=== PATIENT | female | born 1985 | race Caucasian/White ===

== ENCOUNTER 2017-04-11 07:11 | Emergency (ER) | payer BC ==
[~2017-04-11] VITALS: Ht 177.8 cm; Wt 95.2 kg
[~2017-04-11 07:11] MED LIST: BENADRYL25 MG PO; CETIRIZINE HCL10 MG PO; CLONAZEPAM2 MG PO; EXCEDRIN MIGRA1 EAC2 PO; PAMPRIN MULTI-1 EACH PO; TRAMADOL HCL50 MG PO; TYLENOL EXTRA500 MG PO; WELLBUTRIN XL300 MG PO
== END 2017-04-11 08:16 | disposition home or self-care (01) ==
LOC: ED 07:11
DX: J02.0 Streptococcal pharyngitis (principal); F31.9 Bipolar disorder, unspecified; F17.200 Nicotine dependence, unspecified, uncomplicated; Z88.8 Allergy status to other drugs, medicaments and biological substances
CPT/HCPCS: 87880; 96372; 99283; J0561

== ENCOUNTER 2020-10-24 21:57 | Emergency (ER) | payer OTHER ==
[~2020-10-24] VITALS: Ht 167.6 cm; Wt 125.6 kg
[~2020-10-24 21:57] MED LIST changes: +BACTRIM DS TAB1 EACH PO
--- OUTSIDE RECORDS SUMMARY | 2020-10-24 22:00 | XMS ---
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 David has no Care Guidelines for this patient. [facility] VISIT COUNT (12 MO.) 1 [facility] TOTAL 1 NOTE: Visits indicate total known visits. ED/UCC VISIT TRACKING (12 MO.) 10/24/2020 21:59 [facility] [place] TYPE: Emergency COMPLAINT: - BLEEDING (14 WEEKS PG) INPATIENT VISIT TRACKING (12 MO.) No inpatient visits to display in this time frame [email or web address]
[2020-10-24] MEDS ORDERED: ASPIRIN81 MG PO (22:25)
== END 2020-10-24 22:48 | disposition home or self-care (01) ==
LOC: ED 21:57
DX: O20.0 Threatened abortion (principal); Z3A.14 14 weeks gestation of pregnancy; Z88.8 Allergy status to other drugs, medicaments and biological substances; Z79.82 Long term (current) use of aspirin
CPT/HCPCS: 99283

== ENCOUNTER 2021-04-11 16:33 | Inpatient (IN) | payer OTHER ==
[~2021-04-11] VITALS: Ht 167.6 cm; Wt 139.7 kg
[~2021-04-11 16:33] MED LIST changes: +ASPIRIN81 MG PO
--- NOTE | 2021-04-11 18:06 | NUR ---
RAPID COVID TEST DONE PER DR ORDER. COVID TEST COLLECTED FROM BOTH NARES W/O ISSUE. PT TOLERATED TX WELL.
[2021-04-11] MEDS ORDERED: VITAFOL-OB+DHA1 EACH PO (21:41)
--- NOTE | 2021-04-12 05:27 | PR ---
[facility] [address] [place], [place] [address] Signed Progress Notes IP Datetime Report Generated by CPN: 04/12/2021 05:27 PROGRESS NOTES: [id number] Impression: Reassuring Heart Rate; Rupture of Membranes Procedures: Artificial ROM; Intrauterine Pressure Catheter; Scalp Electrode Plan: Continue Present Management Other Informed Consents: Amniotomy and FSE+IUPC placement VITAL SIGNS: [id number] Vital Signs: Reviewed; Within Normal Limits EXAM: [id number] Dilatation: 1.0 Effacement: 50 Station: -2 Contractions: irregular MEMBRANES: [id number] Membranes Status: Ruptured Comments: 35 yo @ 38 4/7 weeks gestation MIOL for severe polyhydramnios per MFM recommendation, AMA, morbid obesity s/p cytotec x 1 comfortable with epidural AROM performed as noted yielding copious amount clear fluid FSE/ IUPC placed without difficulty head well-applied to cervix, contractions adequate at this time. s/p Anny for GBS prophylaxis, continue q4h FETUS A: [id number] FHR Baseline: 135 Variability: Moderate 6-25bpm Accelerations: 15X15 Decelerations: None FHR Category: Category I Presentation: Vertex Comments on Fetus A: No evidence of acidosis FETUS B: [id number] Signing Physician: Kristi Mckenzie DO Copies: *Electronically Signed* 04/12/21 0527 KRISTI MCKENZIE DO PATIENT NAME: TJ ZUNIGA PROGRESS NOTE DATE OF : 85 PHYSICIAN: KRISTI MCKENZIE DO RPT #: [id number] REPORT IS CONFIDENTIAL AND NOT TO BE RELEASED WITHOUT AUTHORIZATION [address], [place] [address] Signed ~ *Electronically Signed* 04/12/21 0527 KRISTI MCKENZIE DO PATIENT NAME: TJ ZUNIGA PROGRESS NOTE DATE OF : 85 PHYSICIAN: KRISTI MCKENZIE DO RPT #: [id number] REPORT IS CONFIDENTIAL AND NOT TO BE RELEASED WITHOUT AUTHORIZATION
--- NOTE | 2021-04-12 06:47 | PR ---
[facility] [address] [place], [place] [address] Signed Progress Notes IP Datetime Report Generated by CPDasha: 04/12/2021 06:47 PROGRESS NOTES: [id number] Impression: Normal Progression of Labor Procedures: Sterile Vag Exam Plan: Continue Present Management Other Informed Consents: Amniotomy and FSE+IUPC placement VITAL SIGNS: Z7457934 Vital Signs: Reviewed; Within Normal Limits EXAM: [id number] Dilatation: 3.0 Effacement: 60 Station: -2 Contractions: irregular MEMBRANES: [id number] Membranes Status: Ruptured Comments: 35 yo @ 38 4/7 weeks gestation MIOL for severe polyhydramnios, AMA, morbid obesity s/p cytotec x 1 AROM performed with FSE, copious amount clear fluid FSE/IUPC plcaed without difficulty. Discussed with pt intermittent decelerations. Currently 3cm. Reviewed if these decelerations become more frequent despite repositioning and fluids if needed, may be indicated. Pt verbalizes understanding and agreement with plan. FETUS A: [id number] FHR Baseline: 135 Variability: Moderate 6-25bpm Accelerations: 15X15 Decelerations: None FHR Category: Category I Presentation: Vertex Comments on Fetus A: No evidence of acidosis FETUS B: [id number] Signing Physician: Agustin Mckenzie DO Copies: *Electronically Signed* 04/12/21 0647 AGUSTIN MCKENZIE DO PATIENT NAME: TJ ZUNIGA PROGRESS NOTE DATE OF : 85 PHYSICIAN: AGUSTIN MCKENZIE DO RPT #: [id number] REPORT IS CONFIDENTIAL AND NOT TO BE RELEASED WITHOUT AUTHORIZATION [address], [place] [address] Signed ~ *Electronically Signed* 04/12/21 0647 AGUSTIN MCKENZIE DO PATIENT NAME: TJ ZUNIGA PROGRESS NOTE DATE OF : 85 PHYSICIAN: AGUSTIN MCKENZIE DO RPT #: [id number] REPORT IS CONFIDENTIAL AND NOT TO BE RELEASED WITHOUT AUTHORIZATION
--- NOTE | 2021-04-12 07:54 | PR ---
[facility] [address] [facility] [place], [place] [address] Signed Progress Notes IP Datetime Report Generated by CPN: 04/12/2021 07:54 PROGRESS NOTES: [id number] Impression: Normal Progression of Labor; Reassuring Heart Rate Procedures: Sterile Vag Exam Plan: Continue Present Management Other Informed Consents: Reviewed anticipated course of labor VITAL SIGNS: [id number] Vital Signs: Reviewed; Within Normal Limits EXAM: [id number] Dilatation: 1.0 Effacement: 50 Station: -1 Contractions: irregular MEMBRANES: E2533102 Membranes Status: Ruptured ROM Note: ROM per Dr Mckenzie using SE Comments: Pt seen and evaluated. Doing well. Comfortable w/ epidural. Reviewed anticipated course of labor/delivery. All questions answered. FETUS A: [id number] FHR Baseline: 135 Variability: Moderate 6-25bpm Accelerations: 15X15 Decelerations: None FHR Category: Category I Presentation: Vertex Comments on Fetus A: No evidence of acidosis FETUS B: [id number] Signing Physician: Anay Escudero DO Copies: ~ *Electronically Signed* 04/12/21 0754 ANAY ESCUDERO DO PATIENT NAME: TJ ZUNIGA PROGRESS NOTE DATE OF : 85 PHYSICIAN: ANAY ESCUDERO DO RPT #: [id number] REPORT IS CONFIDENTIAL AND NOT TO BE RELEASED WITHOUT AUTHORIZATION
--- NOTE | 2021-04-12 14:06 | PR ---
[facility] [address] [place], [place] [address] Signed Progress Notes IP Datetime Report Generated by CPN: 04/12/2021 14:06 PROGRESS NOTES: [id number] Impression: Normal Progression of Labor Procedures: Sterile Vag Exam Plan: Augmentation Other Informed Consents: Reviewed anticipated course of labor VITAL SIGNS: U1408901 Vital Signs: Reviewed; Within Normal Limits EXAM: Y7753248 Dilatation: 5.0 Effacement: 80 Station: 0 Contractions: irregular MEMBRANES: [id number] Membranes Status: Ruptured ROM Note: ROM per Dr Mckenzie using SE Comments: 35 yo @ 38 4/7 weeks gestation MIOL for severe polyhydramnios, AMA, morbid obesity s/p cytotec x1, AROM, pitocin. Pitocin previously discontinued for recurrent late decelerations, not making change without pitocin. Resume pitocin at lowest dose FETUS A: [id number] FHR Baseline: 135 Variability: Moderate 6-25bpm Accelerations: 15X15 Decelerations: None FHR Category: Category I Presentation: Vertex Comments on Fetus A: No evidence of acidosis FETUS B: [id number] Signing Physician: Agustin Mckenzie DO *Electronically Signed* 04/12/21 1406 AGUSTIN MCKENZIE DO PATIENT NAME: TJ ZUNIGA PROGRESS NOTE DATE OF : 85 PHYSICIAN: AGUSTIN MCKENZIE DO RPT #: [id number] REPORT IS CONFIDENTIAL AND NOT TO BE RELEASED WITHOUT AUTHORIZATION [address] [place], [place] [address] Signed Copies: ~ *Electronically Signed* 04/12/21 1406 AGUSTIN MCKENZIE DO PATIENT NAME: TJ ZUNIGA PROGRESS NOTE DATE OF : 85 PHYSICIAN: AGUSTIN MCKENZIE DO RPT #: [id number] REPORT IS CONFIDENTIAL AND NOT TO BE RELEASED WITHOUT AUTHORIZATION
--- NOTE | 2021-04-13 06:55 | PR ---
[facility] [address] [facility] [place], [place] [address] Signed PP Progress Notes Datetime Report Generated by CPDasha: 04/13/2021 06:55 SUBJECTIVE: [id number] Pain: Within Normal Limits Nausea/Vomiting: Present Flatus: Yes Bowel Movement: No Vital Signs: O5168749 Vital Signs: Reviewed; Within Normal Limits Notable Details: HTN while pushing and holding baby, resolved Cardiovascular: Normal Respiratory: Normal Abdomen/Uterus: Normal Lochia: Normal Extremities: Normal Progress: Normal Exam Comments: NAd, lying in bed RRR No dyspnea Abd SNTND FFBU Negative Rachelle's BL, 2+ pitting edema BLLE IMPRESSION/PLAN/PROCEDURES: [id number] Impression: Normal Progression; Difficulties Plan: Continue Present Management; Consult Progress Notes: PPD#1 s/p -ambulating, voiding, + flatus -mild nausea this am, tolerating crackers and clears -difficulty with latch, encouraged consult -anticipate DC to home tomorrow Signing Physician: Agustin Mckenzie DO Copies: ~ *Electronically Signed* 04/13/21 0655 AGUSTIN MCKENZIE DO PATIENT NAME: TJ ZUNIGA PROGRESS NOTE DATE OF : 85 PHYSICIAN: AGUSTIN MCKENZIE DO RPT #: [id number] REPORT IS CONFIDENTIAL AND NOT TO BE RELEASED WITHOUT AUTHORIZATION
--- NOTE | 2021-04-14 10:06 | PR ---
[facility] [address] [facility] [place], [place] [address] Signed PP Progress Notes Datetime Report Generated by CPN: 04/14/2021 10:06 SUBJECTIVE: [id number] Pain: Within Normal Limits Nausea/Vomiting: Denies Flatus: Yes Bowel Movement: No Vital Signs: R2365954 Vital Signs: Reviewed Notable Details: occasional HTN when holding baby while cuff inflates, otherwise registering as normotensive Cardiovascular: Normal Respiratory: Normal Abdomen/Uterus: Normal Lochia: Normal Vulva/Perineum: Normal Extremities: Normal Progress: Abnormal Exam Comments: NAD, sitting in bed with baby RRR No dyspnea, no retractions Abd SNTND FFBU Ext: neg Rachelle's BL IMPRESSION/PLAN/PROCEDURES: [id number] Impression: Normal Progression Plan: Continue Present Management Progress Notes: PPD#2 s/p Progressing well Lochia light difficulties due to tongue tie, anticipate outpatient support Pain well controlled with motrin Anticipate DC to home today, outpatient follow-up at 2 weeks by phone and 6 weeks in person Signing Physician: Agustin Mckenzie DO *Electronically Signed* 04/14/21 1006 AGUSTIN MCKENZIE DO PATIENT NAME: TJ ZUNIGA PROGRESS NOTE DATE OF : 85 PHYSICIAN: AGUSTIN MCKENZIE DO RPT #: [id number] REPORT IS CONFIDENTIAL AND NOT TO BE RELEASED WITHOUT AUTHORIZATION [address], [place] [address] Signed Copies: ~ *Electronically Signed* 04/14/21 1006 AGUSTIN MCKENZIE DO PATIENT NAME: TJ ZUNIGA PROGRESS NOTE DATE OF : 85 PHYSICIAN: AGUSTIN MCKENZIE DO RPT #: [id number] REPORT IS CONFIDENTIAL AND NOT TO BE RELEASED WITHOUT AUTHORIZATION
== END 2021-04-14 12:00 | disposition home or self-care (01) | DRG 806 ==
LOC: FBC 16:33
PROVIDERS: ADMIT Obstetrics & Gynecology; ATTEND Obstetrics & Gynecology
PROC: 10E0XZZ Delivery of Products of Conception, External Approach (ICD-10-PCS; principal; 2021-04-13)
PROC: 10H07YZ Insertion of Other Device into Products of Conception, Via Natural or Artificial Opening (ICD-10-PCS; 2021-04-13)
PROC: 10907ZC Drainage of Amniotic Fluid, Therapeutic from Products of Conception, Via Natural or Artificial Opening (ICD-10-PCS; 2021-04-13)
PROC: 3E033VJ Introduction of Other Hormone into Peripheral Vein, Percutaneous Approach (ICD-10-PCS; 2021-04-13)
PROC: 0KQM0ZZ Repair Perineum Muscle, Open Approach (ICD-10-PCS; 2021-04-13)
PROC: 10907ZC Drainage of Amniotic Fluid, Therapeutic from Products of Conception, Via Natural or Artificial Opening (ICD-10-PCS; 2021-04-13)
PROC: 3E033VJ Introduction of Other Hormone into Peripheral Vein, Percutaneous Approach (ICD-10-PCS; 2021-04-13)
PROC: 0UQMXZZ Repair Vulva, External Approach (ICD-10-PCS; 2021-04-13)
DX: O40.3XX0 Polyhydramnios, third trimester, not applicable or unspecified (principal); O99.324 Drug use complicating childbirth; Z37.0 Single live birth; O99.214 Obesity complicating childbirth; Z3A.38 38 weeks gestation of pregnancy; E66.01 Morbid (severe) obesity due to excess calories; O76 Abnormality in fetal heart rate and rhythm complicating labor and delivery; O70.1 Second degree perineal laceration during delivery; O71.82 Other specified trauma to perineum and vulva; O99.334 Smoking (tobacco) complicating childbirth; F17.210 Nicotine dependence, cigarettes, uncomplicated; O99.824 Streptococcus B carrier state complicating childbirth; F12.90 Cannabis use, unspecified, uncomplicated
CPT/HCPCS: 01960; 85027; C9803; J1650; J2405; J2540; J2590; J2795; J3010; J7121; U0003

== ENCOUNTER 2023-07-17 11:35 | Inpatient (IN) | payer OTHER ==
[~2023-07-17] VITALS: Ht 168.9 cm; Wt 133.8 kg
[~2023-07-17 11:35] MED LIST changes: +VITAFOL-OB+DHA1 EACH PO
[2023-07-18 00:54] LABS: AMPHETAMINES, URINE NEGATIVE (NEGATIVE); BARBITURATES, URINE NEGATIVE (NEGATIVE); BENZODIAZEPINE, URINE NEGATIVE (NEGATIVE); BUPRENORPHINE, URINE NEGATIVE (NEGATIVE); CANNABINOID, URINE POSITIVE (NEGATIVE); COCAINE, URINE NEGATIVE (NEGATIVE); ECSTASY, URINE NEGATIVE (NEGATIVE); FENTANYL, URINE NEGATIVE (NEGATIVE); METHADONE, URINE NEGATIVE (NEGATIVE); OPIATES, URINE NEGATIVE (NEGATIVE); OXYCODONE, URINE NEGATIVE (NEGATIVE); PHENCYCLIDINE, URINE NEGATIVE (NEGATIVE)
[2023-07-18 01:08] LABS: HEMATOCRIT 42.5 % (35.0-50.0); HEMOGLOBIN 14.5 g/dL (12.0-18.0); MCH 30.7 (27-36); MCV 90.1 fl (81-99); RBC 4.72 M/ul (4.3-5.7); RDW 14.5 (10.5-15.0)
[2023-07-18 02:10] LABS: ABO A; ANTIBODY SCREEN NEGATIVE; RH POSITIVE
[2023-07-18 03:13] VITALS: BP 139/78
--- NOTE | 2023-07-18 19:12 | PR ---
[facility] [address] [facility] [place], [place] [address] Signed Progress Notes IP Datetime Report Generated by CPN: 07/18/2023 19:11 PROGRESS NOTES: [id number] Impression: Normal Progression of Labor; Reassuring Heart Rate Procedures: Sterile Vag Exam Plan: Augmentation VITAL SIGNS: X8631277 Vital Signs: Reviewed; Within Normal Limits EXAM: W8673417 Dilatation: 4.0 Effacement: 50 Station: -3 Contractions: irregular MEMBRANES: C7543370 Comments: Cx more dilated than earlier but presenting part not palpable. VTX confirmed by U/S. Will begin pit augment given the advanced dilation and high station. FETUS A: H7759577 FHR Baseline: 120 Variability: Moderate 6-25bpm Accelerations: 15X15 Decelerations: None FHR Category: Category I Presentation: Vertex FETUS B: [id number] Signing Physician: Natividad Martinez MD Copies: ~ *Electronically Signed* 07/18/231910 NATIVIDAD MARTINEZ MD PATIENT NAME: TJ CAO MANUEL PROGRESS NOTE DATE OF : 85 PHYSICIAN: NATIVIDAD MARTINEZ MD RPT #: [id number] REPORT IS CONFIDENTIAL AND NOT TO BE RELEASED WITHOUT AUTHORIZATION
--- NOTE | 2023-07-18 19:13 | PR ---
[facility] [address] [place], [place] [address] Signed Progress Notes IP Datetime Report Generated by CPN: 07/18/2023 19:13 PROGRESS NOTES: [id number] Impression: Normal Progression of Labor; Reassuring Heart Rate Procedures: Sterile Vag Exam Plan: Augmentation VITAL SIGNS: J7247684 Vital Signs: Reviewed; Within Normal Limits EXAM: P4521917 Dilatation: 4.0 Effacement: 50 Station: -3 Contractions: irregular MEMBRANES: L2682985 Comments: Cx more dilated than earlier but presenting part not palpable. VTX confirmed by U/S. Will begin pit augment given the advanced dilation and high station. Discussed with patient and she is on board with plan. FETUS A: [id number] FHR Baseline: 120 Variability: Moderate 6-25bpm Accelerations: 15X15 Decelerations: None FHR Category: Category I Presentation: Vertex FETUS B: [id number] Signing Physician: Natividad Martinez MD Copies: ~ *Electronically Signed* 07/18/231912 NATIVIDAD MARTINEZ MD PATIENT NAME: TJ CAO MANUEL PROGRESS NOTE DATE OF : 85 PHYSICIAN: NATIVIDAD MARTINEZ MD RPT #: [id number] REPORT IS CONFIDENTIAL AND NOT TO BE RELEASED WITHOUT AUTHORIZATION
--- NOTE | 2023-07-18 20:27 | PR ---
[facility] [address] [place], [place] [address] Signed Progress Notes IP Datetime Report Generated by GABO: 07/18/2023 20:27 PROGRESS NOTES: [id number] Impression: Reassuring Heart Rate Procedures: Sterile Vag Exam Plan: Continue Present Management; Anesthesia Consult VITAL SIGNS: C5693198 Vital Signs: Reviewed; Within Normal Limits EXAM: O7494023 Dilatation: 4.0 Effacement: 80 Station: -3 Contractions: q 2 to 4 min MEMBRANES: G8033746 Comments: Getting more uncomfortable and requesting epidural but anesthesia unavailable for approx 1 hr. She feels she can wait. Baby has come down since her last exam. Will continue. FETUS A: [id number] FHR Baseline: 120 Variability: Moderate 6-25bpm Accelerations: 15X15 Decelerations: None FHR Category: Category I Presentation: Vertex FETUS B: [id number] Signing Physician: Natividad Martinez MD Copies: ~ *Electronically Signed* 07/18/232026 NATIVIDAD MARTINEZ MD PATIENT NAME: TJ CAO MANUEL PROGRESS NOTE DATE OF : 85 PHYSICIAN: NATIVIDAD MARTINEZ MD RPT #: [id number] REPORT IS CONFIDENTIAL AND NOT TO BE RELEASED WITHOUT AUTHORIZATION
--- NOTE | 2023-07-18 23:34 | PR ---
[facility] [address] [facility] [place] [address] Signed Progress Notes IP Datetime Report Generated by CPN: 07/18/2023 23:34 PROGRESS NOTES: [id number] Impression: Reassuring Heart Rate Procedures: Artificial ROM; Scalp Electrode; Sterile Vag Exam Plan: Continue Present Management VITAL SIGNS: H5609547 Vital Signs: Reviewed; Within Normal Limits EXAM: T1094639 Dilatation: 4.0 Effacement: 80 Station: -3 Contractions: q 2 to 3 min MEMBRANES: O6175915 Comments: Pt declined epidural during attempt at placement. FSE placed for AROM with small amount of clear fluid seen. Will continue present management. FETUS A: [id number] FHR Baseline: 120 Variability: Moderate 6-25bpm Accelerations: 15X15 Decelerations: None FHR Category: Category I Presentation: Vertex FETUS B: [id number] Signing Physician: Natividad Martinez MD Copies: ~ *Electronically Signed* 07/18/23 2334 NATIVIDAD MARTINEZ MD PATIENT NAME: TJ CAO MANUEL PROGRESS NOTE DATE OF : 85 PHYSICIAN: NATIVIDAD MARTINEZ MD RPT #: [id number] REPORT IS CONFIDENTIAL AND NOT TO BE RELEASED WITHOUT AUTHORIZATION
[2023-07-19 02:23] LABS: CREATININE, SERUM 0.76 mg/dL (0.55-1.02)
--- NOTE | 2023-07-19 02:32 | PR ---
[facility] [address] [place], [place] [address] Signed Progress Notes IP Datetime Report Generated by GABO: 07/19/2023 02:32 PROGRESS NOTES: [id number] Impression: Reassuring Heart Rate; Gest. HTN/PreEclampsia/Eclampsia Procedures: Intrauterine Pressure Catheter Plan: Continue Present Management VITAL SIGNS: K6764263 Vital Signs: Reviewed; Within Normal Limits EXAM: U4643964 Dilatation: 5.0 Effacement: 80 Station: -2 Contractions: irregular MEMBRANES: J4541109 Comments: Some progress and tolerating the contractions but difficult to filler picker well. Will place IUPC to allow improved dosing of pitocin. Severe range BPs which are improved currently after 20 mg and then 40 mg of labetalol. PIH labs pending. Will continue close observation. Single deep variable about an hr ago which has not recurred and status good with accels and mod variability at this time. FETUS A: [id number] FHR Baseline: 120 Variability: Moderate 6-25bpm Accelerations: 15X15 Decelerations: None FHR Category: Category I Presentation: Vertex FETUS B: [id number] Signing Physician: Natividad Martinez MD Copies: ~ *Electronically Signed* 07/19/23 0232 NATIVIDAD MARTINEZ MD PATIENT NAME: TJ CAO PROGRESS NOTE DATE OF : 85 PHYSICIAN: NATIVIDAD MARTINEZ MD RPT #: [id number] REPORT IS CONFIDENTIAL AND NOT TO BE RELEASED WITHOUT AUTHORIZATION
--- NOTE | 2023-07-19 06:43 | PR ---
[facility] [address] [facility] [place], [place] [address] Signed Progress Notes IP Datetime Report Generated by CPN: 07/19/2023 06:43 PROGRESS NOTES: [id number] Impression: Reassuring Heart Rate Procedures: Sterile Vag Exam Plan: Continue Present Management VITAL SIGNS: [id number] Vital Signs: Reviewed; Within Normal Limits EXAM: H7947617 Dilatation: 6.0 Effacement: 80 Station: -2 Contractions: q 2 to 3 min, adequate MEMBRANES: I5333163 Comments: Excellent labor pattern seen with internals though minimal change. Will continue with position changes as baby does not seem to be coming down well. Severe HTN--repeating labetalol now--20 mg to 40 mg. Mag will be needed but would like to avoid now to allow for more effective contractions. FETUS A: [id number] FHR Baseline: 120 Variability: Moderate 6-25bpm Accelerations: 15X15 Decelerations: Variable FHR Category: Category II Presentation: Vertex FETUS B: [id number] Signing Physician: Natividad Martinez MD Copies: ~ *Electronically Signed* 07/19/23 0643 NATIVIDAD MARTINEZ MD PATIENT NAME: TJ CAO PROGRESS NOTE DATE OF : 85 PHYSICIAN: NATIVIDAD MARTINEZ MD RPT #: [id number] REPORT IS CONFIDENTIAL AND NOT TO BE RELEASED WITHOUT AUTHORIZATION
[2023-07-19 06:55] VITALS: BP 190/91
--- NOTE | 2023-07-19 11:55 | PR ---
[facility] [address] [place], [place] [address] Signed Progress Notes IP Datetime Report Generated by GABO: 07/19/2023 11:55 PROGRESS NOTES: [id number] Impression: Arrest of Dilatation/Descent; Non-reassuring Heart Rate Procedures: Sterile Speculum Exam Plan: Continue Present Management Informed Consent Obtain: Vaginal Delivery VITAL SIGNS: N4310571 Vital Signs: Reviewed; Within Normal Limits EXAM: D4259602 Dilatation: 6.0 Effacement: 80 Station: -2 Contractions: q 2 to 3 min, adequate MEMBRANES: G1550372 Comments: Assuming care: Late entry note 37 yo @ 39w1d who was admitted for induction of labor on 07/18/23 for unstable lie. Her labor course has been slow and notable for minimal change in station, intolerance of labor with variable and late decelerations, severe range blood pressures secondary to pain and requiring IV antihypertensives to manage. history reviewed and up to date and notable for morbid obesity. Pitocin has been started and stopped intermittently for deep variable decelerations despite amnio infusion and position changes. Baby appears to have adequate reserve and not currently showing signs of acidemia. Pitocin was restarted this morning around 9AM and has continued to be increased. Currently she is on 14 neli units of Pitocin with continued variable decelerations, the lowest of which has been down to the 60s. Have discussed with patient and nursing, as long as baby appears to have adequate reserve, we can continue with increasing Pitocin for contractions every 2-3 minutes. However, if reserve appears to be compromised, or there has been no further cervical change despite Pitocin augmentation, at that point the only option for delivery will be by section. She gave verbal understanding. Last cervical exam was which has been unchanged since 0855 hrs. *Electronically Signed* 07/19/23 1155 FÁTIMA WISE MD PATIENT NAME: TJ CAO PROGRESS NOTE DATE OF : 85 PHYSICIAN: FÁTIMA WISE MD RPT #: [id number] REPORT IS CONFIDENTIAL AND NOT TO BE RELEASED WITHOUT AUTHORIZATION [facility] [address] [place], [place] [address] Signed Will continue to monitor. FETUS A: [id number] FHR Baseline: 120 Variability: Moderate 6-25bpm Accelerations: 15X15 Decelerations: Variable FHR Category: Category II Presentation: Vertex FETUS B: [id number] Signing Physician: Fátima Wise MD Copies: ~ *Electronically Signed* 07/19/23 1155 FÁTIMA WISE MD PATIENT NAME: TJ CAO PROGRESS NOTE DATE OF : 85 PHYSICIAN: FÁTIMA WISE MD RPT #: [id number] REPORT IS CONFIDENTIAL AND NOT TO BE RELEASED WITHOUT AUTHORIZATION
[2023-07-20 05:24] LABS: HEMATOCRIT 41.1 % (35.0-50.0); HEMOGLOBIN 13.8 g/dL (12.0-18.0); MCHC 33.5 g/dl (30-36); MCV 89.7 fl (81-99); PLATELET COUNT 163 K/uL (140-440); RBC 4.59 M/ul (4.3-5.7); RDW 14.8 (10.5-15.0)
--- NOTE | 2023-07-20 06:59 | PR ---
[facility] [address] [place], [place] [address] Signed PP Progress Notes Datetime Report Generated by CPN: 07/20/2023 06:59 SUBJECTIVE: [id number] Pain: Within Normal Limits Nausea/Vomiting: Denies Flatus: Yes Bowel Movement: No Vital Signs: E5568022 Vital Signs: Reviewed; Within Normal Limits Cardiovascular: Not Done Respiratory: Not Done Abdomen/Uterus: Normal Lochia: Normal Vulva/Perineum: Not Done Breasts: Not Done CVA Tenderness: Not Done Extremities: Normal Incision: Not Applicable Progress: Abnormal Exam Comments: Baby unable to latch properly. Currently . IMPRESSION/PLAN/PROCEDURES: [id number] Impression: Normal Progression; Difficulties Plan: Consult Procedures: None Progress Notes: S: 37 yo with preeclampsia with severe features s/p vaginal delivery. PPD #1. Denies MOORE, CP, SOB, F/C, N/V, RUQ pain, changes in vision, vaginal discharge. Not yet ambulating. Voiding per king. Pain controlled. Tolerating regular diet. O: AFVSS, blood pressures in non-severe range. Abd: Soft. Non-tender. Fundus firm and below umbilicus. Musc: PHELPS. Moderate edema. UOP: over 3 liters of fluid via king Signing Physician: Suyapa Alva MD *Electronically Signed* 07/20/23 0659 SUYAPA ALVA MD PATIENT NAME: TJ CAO PROGRESS NOTE DATE OF : 85 PHYSICIAN: SUYAPA ALVA MD RPT #: [id number] REPORT IS CONFIDENTIAL AND NOT TO BE RELEASED WITHOUT AUTHORIZATION
[2023-07-21 05:31] LABS: HEMATOCRIT 38.2 % (35.0-50.0); HEMOGLOBIN 12.8 g/dL (12.0-18.0); MCH 30.4 (27-36); MCHC 33.5 g/dl (30-36); MCV 90.6 fl (81-99); RBC 4.21 M/ul (4.3-5.7); RDW 14.8 (10.5-15.0)
--- NOTE | 2023-07-21 10:50 | PR ---
[facility] [address] [place], [place] [address] Signed PP Progress Notes Datetime Report Generated by GABO: 07/21/2023 10:50 SUBJECTIVE: [id number] Pain: Within Normal Limits Nausea/Vomiting: Denies Flatus: Yes Bowel Movement: Yes Vital Signs: D1223468 Vital Signs: Reviewed; Within Normal Limits EXAM: Met Cardiovascular: Not Done Respiratory: Not Done Abdomen/Uterus: Normal Lochia: Normal Vulva/Perineum: Not Done Breasts: Not Done CVA Tenderness: Not Done Extremities: Normal Incision: Not Applicable Progress: Not Applicable Exam Comments: Baby unable to latch properly. Currently . IMPRESSION/PLAN/PROCEDURES: [id number] Impression: Normal Progression Plan: Discharge Procedures: None Other Procedures: Depo-Provera injection Progress Notes: S: 37 yo with preeclampsia with severe features s/p vaginal delivery with vacuum assistance. PPD #2. Denies MOORE, CP, SOB, F/C, N/V, RUQ pain, changes in vision, vaginal discharge. Ambulating, tolerating regular diet, voiding on own, pain controlled. O: AFVSS, blood pressures in non-severe range. Abd: Soft. Non-tender. Fundus firm and below umbilicus. Musc: PHELPS. Moderate edema. UOP: over 3 liters of fluid via king A/P: 37 yo with preeclampsia with severe features. S/P vaginal delivery. PPD #1. Doing well. -Continue Magnesium sulfate until 1500 hrs -King catheter to be removed along with completion of magnesium sulfate. *Electronically Signed* 07/21/23 1050 SUYAPA ALVA MD PATIENT NAME: TJ CAO PROGRESS NOTE DATE OF : 85 PHYSICIAN: SUYAPA ALVA MD RPT #: [id number] REPORT IS CONFIDENTIAL AND NOT TO BE RELEASED WITHOUT AUTHORIZATION [address] [place], [place] [address] Signed -IV to remain in place until discharge -Continue care -Disposition: In house. Likely discharge home tomorrow afternoon Signing Physician: Suyapa Alva MD Copies: ~ *Electronically Signed* 07/21/23 105 SUYAPA ALVA MD PATIENT NAME: TJ CAO PROGRESS NOTE DATE OF : 85 PHYSICIAN: SUYAPA ALVA MD RPT #: [id number] REPORT IS CONFIDENTIAL AND NOT TO BE RELEASED WITHOUT AUTHORIZATION
== END 2023-07-21 15:20 | disposition home or self-care (01) | DRG 807 ==
LOC: FBC 11:35
PROVIDERS: Obstetrics & Gynecology; ADMIT Obstetrics & Gynecology; ATTEND Obstetrics & Gynecology
PROC: 10D07Z6 Extraction of Products of Conception, Vacuum, Via Natural or Artificial Opening (ICD-10-PCS; principal; 2023-07-19)
PROC: 0KQM0ZZ Repair Perineum Muscle, Open Approach (ICD-10-PCS; 2023-07-19)
PROC: 10907ZC Drainage of Amniotic Fluid, Therapeutic from Products of Conception, Via Natural or Artificial Opening (ICD-10-PCS; 2023-07-19)
PROC: 3E0R3BZ Introduction of Anesthetic Agent into Spinal Canal, Percutaneous Approach (ICD-10-PCS; 2023-07-19)
PROC: 00HU33Z Insertion of Infusion Device into Spinal Canal, Percutaneous Approach (ICD-10-PCS; 2023-07-19)
PROC: 4A033R1 Measurement of Arterial Saturation, Peripheral, Percutaneous Approach (ICD-10-PCS; 2023-07-19)
PROC: 10H07YZ Insertion of Other Device into Products of Conception, Via Natural or Artificial Opening (ICD-10-PCS; 2023-07-19)
DX: O14.14 Severe pre-eclampsia complicating childbirth (principal); Z37.0 Single live birth; O76 Abnormality in fetal heart rate and rhythm complicating labor and delivery; O62.1 Secondary uterine inertia; O32.0XX0 Maternal care for unstable lie, not applicable or unspecified; O69.1XX0 Labor and delivery complicated by cord around neck, with compression, not applicable or unspecified; O70.1 Second degree perineal laceration during delivery; O99.334 Smoking (tobacco) complicating childbirth; F17.210 Nicotine dependence, cigarettes, uncomplicated; O99.324 Drug use complicating childbirth; F12.90 Cannabis use, unspecified, uncomplicated; Z3A.39 39 weeks gestation of pregnancy
CPT/HCPCS: 36415; 80307; 82565; 82803; 84450; 84520; 84550; 85027; 85060; 86850; 86900; 86901; A9270; J0690; J1050; J1940; J2001; J2405; J2590; J2765; J2795; J3475; J7040; J7121